=== PATIENT | male | born 1945 | race Caucasian/White ===

== ENCOUNTER → 2016-11-30 | Outpatient (CLI) | payer OTHER, MEDICARE | LOC: BHFA 13:30 | PROVIDERS: ATTEND Internal Medicine Interventional Cardiology | DX: I25.10 Atherosclerotic heart disease of native coronary artery without angina pectoris (principal); E78.00 Pure hypercholesterolemia, unspecified; I71.2 Thoracic aortic aneurysm, without rupture; I27.2 Other secondary pulmonary hypertension ==

== ENCOUNTER 2016-12-07 09:42 | Day surgery (SDC) | payer OTHER, MEDICARE ==
[2016-12-07] MEDS ORDERED: LIDOCAINE 1% 30 ML SDV ONE (12:13)
[2016-12-07] MEDS ORDERED: fentaNYL 100 MCG/2 ML INJ ONE (12:13)
[2016-12-07] MEDS ORDERED: MIDAZOLAM 2 MG/2 ML VIAL ONE (12:14)
[2016-12-07] MEDS ORDERED: IOPAMIDOL (ISOVUE-370) 150 ML BTL IV ONE (12:14)
--- NOTE | 2016-12-07 14:27 | PDDXCAT ---
Diagnostic Cath Note - . Date: 12/07/16 Software Architect: Timo Indication: Class I/II angina, intolerance to med therapy or failure to respond - Materials Right Heart Cath size: 5F Right Heart Cath materials: PWP catheter - Findings-Right Heart Catheterization RA: 8 mm of mercury RV: 36/2 mm of mercury PA: 36/16 mm of mercury with a mean of 22 PAOP: 13 mm of mercury Complications: none Estimated blood loss: <50ml Closure method: manual pressure Assessment: normal right heart hemodynamics without evidence of pulmonary hypertension Plan: follow-up Mal Dumont considerations for VO2 max treadmill Patient Problems: Problems Problem Status Onset Dyspnea Acute
== END 2016-12-07 13:18 | disposition home or self-care (01) ==
LOC: FCATH 09:42
PROVIDERS: ATTEND Internal Medicine Interventional Cardiology
PROC: 4A023N6 Measurement of Cardiac Sampling and Pressure, Right Heart, Percutaneous Approach (ICD-10-PCS; principal; 2016-12-07)
DX: I25.9 Chronic ischemic heart disease, unspecified (principal); E78.00 Pure hypercholesterolemia, unspecified; J45.990 Exercise induced bronchospasm; I27.2 Other secondary pulmonary hypertension; I71.2 Thoracic aortic aneurysm, without rupture; J43.9 Emphysema, unspecified; K21.9 Gastro-esophageal reflux disease without esophagitis; L29.9 Pruritus, unspecified; R91.1 Solitary pulmonary nodule; Z87.891 Personal history of nicotine dependence
CPT/HCPCS: 93451; C1769; J1644; J2250; J3010; Q9967

== ENCOUNTER → 2018-08-27 | Outpatient (CLI) | payer OTHER, MEDICARE | LOC: BHFA 14:45 | PROVIDERS: ATTEND Internal Medicine Cardiovascular Disease | DX: R06.09 Other forms of dyspnea (principal) ==